=== PATIENT | female | born 1985 | race Caucasian/White ===

== ENCOUNTER → 2018-07-05 12:48 | Outpatient (REF) | payer OTHER, SELFPAY | LOC: LAB 12:48 | PROVIDERS: Visit Provider Family Medicine | DX: R10.9 Unspecified abdominal pain (principal) | CPT/HCPCS: 87086 ==

== ENCOUNTER → 2018-11-06 12:13 | Outpatient (CLI) | payer OTHER, SELFPAY ==
--- NOTE | 2018-11-06 | DI.US.S_ITS ---
PROCEDURE: US RENAL COMPLETE INDICATIONS: Hematuria, unspecified TECHNIQUE: Real-time scanning was performed of the kidneys and bladder, with image documentation. COMPARISON: [facility], CT, IVP (ABD & PEL WWO CONTRAST), 08/28/2017, 15:44. FINDINGS: Kidneys: Kidneys are normal in size. Right kidney measures 9.9 cm long; left kidney measures 9.0 cm long. Right renal cortical thickness is 1.5 cm; left renal cortical thickness is 1.7 cm. Renal cortical echotexture is normal. No hydronephrosis or nephrolithiasis. No suspicious solid mass lesions. Bladder: Pre-void bladder volume is 307 mL. Post-void residual is 12 mL. Pre-void images demonstrate no intraluminal masses or stones. On pre-void images, bilateral ureteral jets are noted with color Doppler interrogation. (Of note, ureteral jets may not be detectable in up to 25% of cases due to insufficient differences in specific gravity between ureteral and bladder urine). Miscellaneous: No free pelvic fluid. IMPRESSION: Normal kidneys. Dictated by: Sorin Macias [facility] Interpreted: Kory Humphries MD on 11/06/2018 at 13:01 Approved by: Kory Humphries M.D. on 11/06/2018 at 14:01
== END ==
PROVIDERS: PCP Family Medicine; Visit Provider Family Medicine
DX: R31.9 Hematuria, unspecified (principal)
CPT/HCPCS: 76770

== ENCOUNTER 2019-10-08 13:45 | Outpatient (RCR) | payer OTHER, SELFPAY ==
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
--- NOTE | 2019-02-13 19:55 | PT-OP ANOTE ---
Pt cancelled appt.
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
--- NOTE | 2019-03-12 13:52 | PT-OP ANOTE ---
Cancelled, could not find childcare.
--- NOTE | 2019-03-20 11:43 | PT-OP ANOTE ---
Pt DNS for appt. Message left on answering machine of next visit and reminded pt of cancellation policy.
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
--- NOTE | 2019-05-08 11:48 | PT-OP ANOTE ---
[id number] Message left reminding pt of her 1p appt and the cancellation policy, advising last 2 appts were DNS. Pt to call if not able to make appt.
--- NOTE | 2019-05-08 16:00 | PT.OPPOC ---
Current Diagnoses Muscle weakness (generalized) (05/08/19) Unspecified urinary incontinence (05/08/19) Visit Care Team Role Provider Type Raulito Bryson MD Attending Provider Physician Primary Care Provider Specialty: Family Practice Address: [address] [place] [address], [facility], [place], [address] Email: [email or web address] Plan Of Care PT-OP-T Assessment and Plan Start: 01/27/19 18:21 Freq: Status: Active Protocol: Document 05/08/19 13:00 AMB (Rec: 05/08/19 14:13 AMB [id number]) Physical Therapy Assessment Goals Three Impairment Pt has urinary dribbling after voiding Short Term Goal (STG) Pt will be able to improve her core stability and minimize her Diastasis Rectus to decrease urinary dribbling after voiding. STG Duration MET Assisted Goal (LTG) Pt will be able to eliminate urinary dribbling after voiding. LTG Duration 07/03/19 Two Impairment PF weakness with urinary leakage on coughing or sneezing Short Term Goal (STG) Pt will be educated in proper valsalva maneuver with toileting and hip hinging with transfers. STG Duration 06/05/19 Assisted Goal (LTG) Increase PF strength with ability to cough or sneeze without urinary leakage. LTG Duration 07/03/19 One Impairment Lacks appropriate HEP Thread Tool Grinder Set Up Operator Goal (LTG) Pt will be independent with a HEP to promote PF stability and strength. LTG Duration 07/03/19 Assessment Summary Assessment Terrie has missed about a month of therapy due to the of her mother. She has progressed in her ability to relax her pelvic floor, but continues to have symptoms of stress incontinence. She is actively trying to lose weight , so we have been educating her on safe exercise given her diastasis recti and pelvic floor impairments. She has shown improvement in that she is leaking less and her overall resting tone of her pelvic floor is lower, but she would benefit from continued PT to help her decrease her stress incontinence and help her return to exercise. Physical Therapy Plan Frequency and Duration Frequency of Treatment 1x/Week Duration of Treatment 8 weeks Plan of Care Start Date 05/08/19 Plan of Care End Date 07/03/19 Therapeutic Interventions Therapeutic Interventions Home Exercise Program,Joint Mobilizations,Manual Therapy, Neuromuscular Re-education, Patient/Caregiver Education, Self-Care/Home Management,Soft Tissue Mobilization,Taping, Therapeutic Activities, Therapeutic Exercises Modalities Biofeedback,Electric Stimulation Next Visit Focus/Plan Next Note Type Treatment Note Next Visit Plan Check DR and PF for tenderness . Focus on decreasing tenderness and tone in PF, and improving core and hip stability. Continue with EMG biofeedback focus on endurance and lowering resting tone. Plan of Care Dates Plan of Care Start Date 05/08/19 Plan of Care End Date 07/03/19
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
--- NOTE | 2019-09-10 16:00 | PT.OPPOC ---
Physical, Occupational & Speech Therapy At [facility] Current Diagnoses Muscle weakness (generalized) (09/10/19) Unspecified urinary incontinence (09/10/19) Visit Care Team Role Provider Type Raulito Bryson MD Attending Provider Physician Primary Care Provider Specialty: Family Practice Address: [address] [place] [address], [id number] Email: [email or web address] Plan Of Care PT-OP-T Assessment and Plan Start: 01/27/19 18:21 Freq: Status: Active Protocol: Document 09/10/19 13:45 AMB (Rec: 09/10/19 16:02 AMB [email or web address]) Physical Therapy Assessment Goals Three Impairment Pt has urinary dribbling after voiding Short Term Goal (STG) Pt will be able to improve her core stability and minimize her Diastasis Rectus to decrease urinary dribbling after voiding. STG Duration MET Endocrinology Nurse Goal (LTG) Pt will be able to eliminate urinary dribbling after voiding. 09/10 Progress made, pt still leaks but has decreased volume of leak. LTG Duration 12/03/19 Two Impairment PF weakness with urinary leakage on coughing or sneezing Short Term Goal (STG) Pt will be educated in proper valsalva maneuver with toileting and hip hinging with transfers. STG Duration MET Custodial Goal (LTG) Increase PF strength with ability to cough or sneeze without urinary leakage. Progress made: pt does not always leak with these triggers but still can. LTG Duration 12/03/19 One Impairment Lacks appropriate HEP Custodial Goal (LTG) Pt will be independent with a HEP to promote PF stability and strength. LTG Duration MET Assessment Summary Assessment Terrie has improved with her static contraction but dynamic movement (running and picking up her son) remains challenging, will need to work on increasing dynamic challenge to pelvic floor. Re -evaluated diastasis and 2 finger widths above umbilicus, but just one below. Physical Therapy Plan Frequency and Duration Frequency of Treatment Every Other Week Duration of Treatment 12 weeks Plan of Care Start Date 09/10/19 Plan of Care End Date 12/03/19 Therapeutic Interventions Therapeutic Interventions Home Exercise Program,Joint Mobilizations,Manual Therapy, Neuromuscular Re-education, Patient/Caregiver Education, Self-Care/Home Management,Soft Tissue Mobilization,Taping, Therapeutic Activities, Therapeutic Exercises Modalities Biofeedback,Electric Stimulation Next Visit Focus/Plan Next Note Type Treatment Note Next Visit Plan Focus on controlled relaxation and contraction of pelvic floor with return to safe exercise. Plan of Care Dates Plan of Care Start Date 09/10/19 Plan of Care End Date 12/03/19 Electronically Signed by: Jory Frye, PT 09/24/19 0752 Please Sign and Return: I have reviewed this Plan of Care and certify that the skilled therapy services above are required to meet the patient?s needs. Physician Signature Date Printed Name and Credentials Clinical Instructor Signature Printed Name and Credentials
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
== END 2020-01-29 08:11 ==
LOC: PHYS 13:45
PROVIDERS: PCP Family Medicine; Visit Provider Family Medicine
DX: R32 Unspecified urinary incontinence (principal); M62.81 Muscle weakness (generalized)
CPT/HCPCS: 97110; 97112; 97140; 97162; 97535

== ENCOUNTER → 2020-08-23 12:56 | Outpatient (CLI) | payer OTHER, SELFPAY ==
--- NOTE | 2020-08-23 | DI.RAD.S_ITS ---
PROCEDURE: XR CERVICAL SPINE 2V OR 3V INDICATIONS: Paresthesia of skin TECHNIQUE: 3 view(s) of the cervical spine were acquired. COMPARISON: None. FINDINGS: Bones: No fracture. Reversal of the normal cervical lordosis. Disc spaces grossly preserved. Multilevel degenerative endplate sclerosis and spurring. Diffuse facet arthropathy. Soft tissues: No prevertebral soft tissue swelling. IMPRESSION: Mild degenerative changes. If the patient's pain or other symptoms persist, consider further evaluation with MRI Dictated by: Gael Crockett M.D. on 08/23/2020 at 14:30 Approved by: Gael Crockett M.D. on 08/23/2020 at 14:31
== END ==
PROVIDERS: PCP Nurse Practitioner Family; Referring Provider Nurse Practitioner Family; Visit Provider Nurse Practitioner Family
DX: R20.2 Paresthesia of skin (principal); M47.812 Spondylosis without myelopathy or radiculopathy, cervical region
CPT/HCPCS: 72040

== ENCOUNTER → 2021-04-04 09:03 | Outpatient (CLI) | payer OTHER, SELFPAY ==
--- NOTE | 2021-04-04 | DI.RAD.S_ITS ---
PROCEDURE: XR HAND RT 2V INDICATIONS: RIGHT HAND SWELLING TECHNIQUE: Two views of the hand(s) acquired. COMPARISON: [facility], , HAND 3V RIGHT, 02/06/2012, 11:15. FINDINGS: Bones: No fractures or dislocations. Carpal bones are normally aligned. No suspicious bony lesions. Soft tissues: No suspicious soft tissue calcifications. IMPRESSION: Intact right hand. Dictated by: Suzy Johnson M.D. on 04/04/2021 at 14:13 Approved by: Suzy Johnson M.D. on 04/04/2021 at 14:14
== END ==
PROVIDERS: PCP Internal Medicine; Referring Provider Internal Medicine; Visit Provider Internal Medicine
DX: M79.89 Other specified soft tissue disorders (principal)
CPT/HCPCS: 73120

== ENCOUNTER → 2021-11-02 12:28 | Outpatient (CLI) | payer OTHER, SELFPAY ==
--- NOTE | 2021-11-02 12:30 | DI.ECHO.S_ITS ---
[facility]---------+ [facility] +---------+ : : [address] : : : : [id number] : : : : Phone: [phone]---------+ Echocardiogram Report + + :Name: JASMIN ROCK Study Date: 11/02/2021 Height: 63 in : :[facility] ReadingLocation: Weight: 194 lb : : Gender: Female BSA: 1.9 m2 : :: 1985 Age: 36 yrs BP: 148/90 mmHg: :Reason For Study: PALPITATIONS, MURMUR : :Ordering Physician: PRISCA, : :GILMA Performed By: Gianna Cota : :Referring: GILMA COPE : + + Interpretation Summary Sinus tachycardia. Heart rate is 88-115 bpm. Normal LV size, wall thickness; wall motion and LV systolic function. EF is 60-65%. Normal chamber sizes. No valvular abnormalities. No prior study available for comparison. Procedure: A two-dimensional transthoracic echocardiogram with color flow and Doppler was performed. The study quality was technically adequate. There is no prior echocardiogram noted for this patient. The patient was in sinus tachycardia with heart rates between 88-115 bpm during the exam. Left Ventricle: The left ventricle is normal in size and wall thickness. The ejection fraction is estimated to be 60-65%. Right Ventricle: The right ventricle is normal in size and function. Atria: The left atrial size is normal. Right atrial size is normal. There is no Doppler evidence for an interatrial shunt. Mitral Valve: The mitral valve is normal in structure and function. There is no mitral regurgitation noted. Aortic Valve: The aortic valve is trileaflet. The aortic valve opens well. There is no aortic valve stenosis. No aortic regurgitation is present. Tricuspid Valve: The tricuspid valve is normal in structure and function. There is trace tricuspid regurgitation. Pulmonic Valve: The pulmonic valve leaflets are thin and pliable; valve motion is normal. There is no pulmonic valvular regurgitation. Great Vessels: The aortic root is normal size. The dimensions of the ascending aorta are normal. The IVC is of normal diameter and collapses greater than 50% with a sniff. This suggests a low right atrial pressure of 3 mm Hg. Pericardium/ Pleura There is no pericardial effusion. There is no pleural effusion. MMode/2D Measurements & Calculations LVIDd: 4.0 cm LVOT diam: 1.8 cm LVIDs: 2.6 cm Ao root diam: 3.0 cm FS: 34.4 % asc Aorta Diam: 3.1 cm IVSd: 0.85 cm Ao Arch Diam (Prox Trans): 2.6 cm LVPWd: 1.0 cm LV iyer. diameter/BSA (cm/m^2): 2.1 LV sys. diameter/BSA (cm/m^2): 1.4 LA A2 area: 19.1 cm2 RA long axis: 4.4 cm LA A4 area: 14.1 cm2 RA area: 10.9 cm2 LA length (vol): 4.6 cm RA vol: 22.8 ml LA vol: 50.2 ml RA : 11.9 ml/m2 LA vol index: 26.3 ml/m2 IVC diam: 1.5 cm RVD1 (basal): 2.7 cm RVD2 (mid): 2.5 cm TAPSE: 2.5 cm Doppler Measurements & Calculations Ao V2 max: 173.2 cm/sec LVOT Max Celio: 118.7 cm/sec Ao V2 mean: 116.0 cm/sec LV V1 max P.6 mmHg Ao max P.0 mmHg LV V1 VTI: 20.9 cm Ao mean P.1 mmHg CHRISTINA(I,D): 1.6 cm2 Ao V2 VTI: 32.7 cm CHRISTINA(V,D): 1.8 cm2 sev ratio: 0.64 CHRISTINA indexed to BSA (cm^2/m^2): 0.85 MV E max celio: 97.4 cm/sec PA V2 max: 141.4 cm/sec MV A max celio: 86.7 cm/sec PA V2 mean: 97.5 cm/sec MV E/A: 1.1 PA mean P.3 mmHg Med Peak E' Celio: 13.4 cm/sec PA pr(Accel): 25.9 mmHg E/E' med: 7.3 Lat Peak E' Celio: 17.6 cm/sec E/E' lat: 5.5 E/e' average: 6.4 MV dec time: 0.21 sec SV(LVOT): 53.4 ml Electronically signed by: Bianka Torres M.D. on Reading Physician:11/03/2021 12:51 AM
== END ==
PROVIDERS: PCP Internal Medicine; Referring Provider Internal Medicine; Visit Provider Internal Medicine
DX: R00.2 Palpitations (principal); R00.1 Bradycardia, unspecified
CPT/HCPCS: 93306

== ENCOUNTER → 2022-12-19 14:16 | Outpatient (CLI) | payer OTHER, SELFPAY ==
--- NOTE | 2022-12-19 | DI.US.S_ITS ---
PROCEDURE: US PELVIC COMPLETE INDICATIONS: RIGHT PELVIC PAIN TECHNIQUE: Real-time scanning was performed of the pelvic organs, with image documentation. Additional endovaginal scanning was necessary due to incomplete visualization of the adnexal and endometrial structures by transabdominal scanning. COMPARISON: None. FINDINGS: Uterus: Uterus is vertically oriented and enlarged at 16.2 x 9.8 x 13.5 cm. The myometrium is heterogeneous as there is a dominant fundal fibroid measuring 10.1 x 9.9 x 11.1 cm. The endometrium is not seen. No significant vascularity. Ovaries: The right ovary measures 2.2 x 1.5 x 1.9 cm, with a calculated ovarian volume of 3.3 cc. The left ovary measures 1.9 x 2.0 x 1.8 cm, with a calculated ovarian volume of 3.6 cc. The ovaries have a normal sonographic appearance. Less than 12 follicles can be seen in each ovary. No adnexal masses are seen. Other: No pathologic free abdominal or pelvic fluid. The appendix was not seen in the right lower quadrant. IMPRESSION: 1. 11.1 cm dominant uterine fibroid enlarging the uterus. 2. Nonvisualization of the endometrium. For further endometrial detail, MR imaging of the pelvis may be useful. 3. Normal ovaries. 4. Nonvisualized appendix. We strive to produce accurate, complete, and clear reports of imaging services. To assist us in improving patient care, this report was composed using standard report templates and voice recognition software. Therefore, it may contain abnormal punctuation, insertions and/or omissions. Occasional wrong-word or sound-alike substitutions may occur. Though we review the report and make efforts to correct it, we do recommend that the report be read carefully in proper context to recognize any text inaccuracies. Dictated by: Suzy Johnson M.D. on 12/19/2022 at 18:38 Approved by: Suzy Johnson M.D. on 12/19/2022 at 18:40
== END ==
PROVIDERS: PCP Internal Medicine; Referring Provider Internal Medicine; Visit Provider Internal Medicine
DX: R10.31 Right lower quadrant pain (principal); D25.9 Leiomyoma of uterus, unspecified
CPT/HCPCS: 76830; 76856

== ENCOUNTER → 2024-04-30 11:00 | Outpatient (CLI) | payer OTHER, SELFPAY ==
[2024-04-30 14:14] LABS: Follicle Stimulating Hormone 1.17 mIU/mL; Luteinizing Hormone 1.33 mIU/mL
== END ==
LOC: LAB 11:03
PROVIDERS: PCP Internal Medicine
DX: L70.8 Other acne (principal)
CPT/HCPCS: 36415; 82627; 83001; 83002; 83498; 84402; 84403

== ENCOUNTER → 2025-01-25 15:05 | Outpatient (CLI) | payer OTHER, SELFPAY ==
--- NOTE | 2025-01-25 15:06 | DI.MG.S_ITS ---
MM screening mammo BI: 01/25/2025. BI-RADS: 1 CLINICAL: 39-year old female for bilateral screening mammogram. Tyrer-Cuzick lifetime risk of 19.2%. Current reported family history of breast cancer: mother. PRIOR EXAMS No prior examinations available. MAMMOGRAPHY TECHNIQUE: 2D and 3D (tomosynthesis) digital mammographic views obtained, with additional images as needed for full coverage. Current study was also evaluated with a Computer Aided Detection (CAD) system. DENSITY B. There are scattered areas of fibroglandular density. MAMMOGRAPHY FINDINGS Bilateral: No suspicious mass, asymmetry, microcalcification, or other abnormality seen. IMPRESSION: * No evidence of malignancy. RECOMMENDATIONS Bilateral * Annual screening mammography. OVERALL ASSESSMENT CATEGORY BI-RADS-1: Negative. The [employer] recommends annual screening mammography beginning at age 40 for women with average risk of breast cancer. ELECTRONICALLY SIGNED: Roxy Llamas M.D. on 01/27/2025 at 06:40:25 AM PT Interpreting Station ID: [id number]
== END ==
PROVIDERS: PCP Registered Nurse; Referring Provider Registered Nurse; Visit Provider Registered Nurse
DX: Z12.31 Encounter for screening mammogram for malignant neoplasm of breast (principal); Z80.3 Family history of malignant neoplasm of breast
CPT/HCPCS: 77063; 77067

== ENCOUNTER 2025-02-26 06:15 | Day surgery (SDC) | payer OTHER, SELFPAY ==
[2025-02-19 12:58] VITALS: BMI 39.6
--- NOTE | 2025-02-26 | PATH_ITS ---
[facility] Accession Number: [id number] No. of containers..01 Tissue . 01 Material submitted: . hemorrhoids - HEMORRHOIDS . 01 Diagnosis: HEMORRHOIDS, HEMORRHOIDECTOMY: Benign hemorrhoid tissue. [facility] 03/03/2025 1617 Local . 01 Electronically signed: . Kalie Aguirre MD, Pathologist NPI- [id number] . 01 Gross description: . HEMORRHOIDS: Received in formalin are 2 fragments of johnson soft tissue measuring 3.0 x 2.0 x 2.0 cm in aggregate. Tissue is inked. Specimen is sectioned and submitted in registration representative sections in 2 cassettes. /FABIOLA 03/02/2025 2313 Local . 01 Pathologist provided ICD-10: K64.9 . 01 CPT . 837311 Specimen Comment: A courtesy copy of this report has been sent to [facility] Performed at: [address] [address], [place], [place] [id number] MD Jean Phan MD Phone: [phone]
[2025-02-26 06:35] VITALS: BMI 40.0
[2025-02-26 06:40] VITALS: BP 125/77; PULSE 84; RESP 17; TEMP 36.5; O2SAT 98
[2025-02-26] MEDS: LACTATED RINGERS 1,000 ML 42 ML IV (06:51)
--- NOTE | 2025-02-26 07:00 | PM.HP.IH.1 ---
History of Present Illness History of Present Illness Date Patient Seen: 02/26/25 Time Patient Seen: 07:00 Chief complaint: Hemorrhoidectomy Narrative: Patient presents this morning for hemorrhoidectomy. FOR[facility]LY [facility] Medical History Acne ADHD Hypertension Hyperthyroidism Irregular menstrual cycle Palpitations Surgical History Anesthesia Kidney stone on left side (~2009) Status post tonsillectomy and adenoidectomy (~1991) Family History Mother Cancer Grandfather History of heart attack Hyperlipidemia Grandmother History of heart attack Grandfather Cancer Grandmother Lung cancer Social History (System 08/14/18 @ 14:36 by Megan Berger) household members: spouse and children Smoking Status: Current some day smoker alcohol intake: current Meds Home Medications and Allergies Home Medications ?Medication ?Instructions ?Recorded ?Confirmed ?Type hydrochlorothiazide 25 mg tablet 25 mg PO QDAY ##0 01/14/11 02/26/25 History atorvastatin 10 mg tablet 10 mg PO DAILY 09/28/18 02/26/25 History amlodipine 10 mg tablet 10 mg PO DAILY 01/25/25 02/26/25 History ergocalciferol (vitamin D2) 1,250 1,250 mcg PO 01/25/25 01/25/25 History mcg (50,000 unit) capsule hydrocortisone 2.5 % topical cream applic topical 01/25/25 01/25/25 History with perineal applicator propranolol 20 mg tablet 20 mg PO BID 01/25/25 02/26/25 History Allergies Allergy/AdvReac Type Severity Reaction Status Date / Time shellfish derived Allergy Severe SWELLING Verified 02/26/25 06:34 OF LIPS AND TONGUE oxycodone Allergy Intermediate Rash, itchy Verified 02/26/25 06:34 Exam Vital Signs (past 8 hours): - 02/26/25 06:40 Temperature 97.7 F Pulse Rate 84 Respiratory Rate 17 Blood Pressure 125/77 Pulse Oximetry 98 Oxygen Delivery Method Room Air Oxygen Delivery Method Room Air Const General: healthy appearing and comfortable Orientation: alert and oriented x3 Resp Effort & Inspection: normal respiratory effort and able to speak in complete sentences Auscultation: clear to auscultation bilaterally Cardio Rate: regular rate Rhythm: regular rhythm GI Palpation: soft (nontender) Extrem Other: without pitting edema Assessment & Plan Assessment and plan (1) Hemorrhoids: Qualifiers: Hemorrhoid type: third degree Qualified Code(s): K64.2 - Third degree hemorrhoids Status: Acute Plan Plan hemorrhoidectomy. The risks, benefits and options regarding the procedure were explained to the patient in detail. Risk discussion included but not limited to: pain, bleeding, infection, recurrence. The patient was encouraged to ask questions and they were answered to their satisfaction. The patient understands and is agreeable to proceed. Time-Based Coding :: [TOTAL MINUTES] spent with patient and on the chart (including review of chart, obtaining history, exam, reviewing outside data, placing orders, documenting exam and treatment plan, and counseling patient) on [DATE]. [employer] Extension Specialist Document charge(s): Yes Charge Codes Inpatient/observation care including admit and discharge same day: [id number]
--- NOTE | 2025-02-26 08:11 | SUR.OPER ---
Prone jackknife on padded OR bed, head in foam head support, gel chest rolls vertically placed along shoulders to hip, toes free of pressure, arms secured on padded arm boards at <90 degrees abduction. Safety belt at shoulders. buttocks taped
[2025-02-26] MEDS: BUPIVACAINE 0.5% W/ EPI (PF) 30 ML VIAL INJ (08:30)
[2025-02-26] MEDS: BACITRACIN OINT 0.9 GM PCKT 1 APPLIC TOP (08:31)
--- NOTE | 2025-02-26 08:48 | PM.OP.1 ---
Operative Date/Time/Diagnoses Date of procedure: 02/26/25 Time of procedure: 08:49 Pre-op diagnosis: Hemorrhoids Post-op diagnosis: same Procedure & Clinicians Procedure: Hemorrhoidectomy x 2; suture ligation of internal hemorrhoids x 2 Same procedure(s) as scheduled: Yes Indications: 39yo F failed medical management of hemorrhoids, prolapsed, unreducible, int/exts Surgeon: Donn Pathak Home Assessment Nurse: Donovan Zendejas Anesthesia Type: General Operative Notes Findings: Large external/internal columns at 3 o'clock, 7 o'clock; the 11 o'clock column was internal Closure Type: primary Specimen(s): other (hemorrhoidal tissue excised) Applied: none Estimated Blood Loss (mL): 30 Blood products transfused: none Procedure in detail: After informed consent and satisfactory general endotracheal anesthesia the patient was placed in the prone simone-knife position and pressure points well padded. Surgical time-out was performed with all team members in agreement. The perirectal area was prepped and draped in the usual sterile manner using Betadine solution. Appropriate DVT prophylaxis was utilized. 30 cc of 0.5% Marcaine with epinephrine was injected around the perianal area to relax the sphincter and for preemptive analgesia. Exam under anesthesia demonstrated the largest hemorrhoidal column at the 3 o'clock position, another large column at the 7 o'clock position, the 11:00 o'clock. column consisted of internal hemorrhoids. The 3:00 o'clock column was addressed 1st. The column was grasped with a Cielo clamp and a v-shaped skin incision was made with cautery and extended proximally elevating the hemorrhoidal tissue off of the sphincter mechanism. A 2-0 chromic suture ligature was placed at the base of the vein and tied. We then ran the suture distally closing the defect in a running locking manner. The hemorrhoid column at 7:00 o'clock was treated in the same manner. The 11:00 o'clock column consistent of internal hemorrhoids x 2. These were clamped with a Cielo and then suture ligated with a 2-0 silk suture similar to the method of internal hemorrhoid banding. I feared that a formal excision here would be at risk for stenosis. With this, all significant hemorrhoidal tissue was addressed. Hemostasis was excellent. Bacitracin ointment was applied to the area. A dry sterile dressing was applied. The instrument sponge and needle counts were all correct x2. The estimated blood loss was minimal. The patient tolerated the procedure well. She was extubated in the operating room after reversal of general anesthetic and transported to the recovery area in stable condition. Complications: none Post-operative Condition: stable Disposition: PACU Plan for aftercare: PACU then home
[2025-02-26 08:52] VITALS: BP 131/64; PULSE 96; RESP 16; TEMP 36.2; O2SAT 95
[2025-02-26 08:56] VITALS: BP 144/58; PULSE 93; RESP 16; O2SAT 95
[2025-02-26 09:01] VITALS: BP 138/62; PULSE 87; RESP 16; O2SAT 93
[2025-02-26] MEDS: HYDROMORPHONE 1 MG INJ IV (09:02)
[2025-02-26 09:06] VITALS: BP 147/70; PULSE 89; RESP 16; O2SAT 94
[2025-02-26 09:11] VITALS: BP 140/61; PULSE 83; RESP 16; TEMP 36.7; O2SAT 93
== END 2025-02-26 09:43 | disposition home or self-care (01) ==
PROVIDERS: PCP Registered Nurse; Referring Provider Surgery; Visit Provider Surgery
PROC: (CPT 46260; principal; 2025-02-26 07:45)
DX: K64.2 Third degree hemorrhoids (principal); F17.210 Nicotine dependence, cigarettes, uncomplicated
CPT/HCPCS: 46260; 81025; J1100; J1171; J2405; J2704; J3010; J3490

== ENCOUNTER → 2025-04-08 08:51 | Outpatient (CLI) | payer OTHER, SELFPAY ==
--- NOTE | 2025-04-08 08:52 | DI.NM.S_ITS ---
PROCEDURE: NM UPTAKE AND SCAN RADIOPHARMACEUTICAL: 375 ???Ci I-123 sodium iodide by mouth. INDICATIONS: Subclinical hyperthyroidism TECHNIQUE: I-123 sodium iodide was administered orally. Anterior neck images were obtained, and iodine uptake by the thyroid gland calculated using arc welder apprentice's software. COMPARISON: None. FINDINGS: Morphology: There is asymmetric uptake in the right gland compared to the left. Uptake: 6 hour thyroid uptake is 16% ; normal ranges are from 6-18%. 24 hour thyroid uptake is 35% ; normal ranges are from 10-30%. IMPRESSION: Mildly increased 24 hour uptake. Mildly asymmetric uptake in the right gland compared to the left. A thyroid ultrasound is recommended to assess for any focal right thyroid nodules. (If positive, this could represent a more toxic adenoma or multinodular goiter) Dictated by: Jason Foy M.D. on 04/09/2025 at 10:44 Approved by: Jason Foy M.D. on 04/09/2025 at 10:46
== END ==
PROVIDERS: Family Provider Registered Nurse; PCP Registered Nurse; Referring Provider Registered Nurse; Visit Provider Registered Nurse
DX: E05.90 Thyrotoxicosis, unspecified without thyrotoxic crisis or storm (principal)
CPT/HCPCS: 78014; A9516

== ENCOUNTER → 2025-04-15 12:56 | Outpatient (ROUT) | payer OTHER, SELFPAY ==
[2025-04-15 13:39] LABS: Influenza A - CEPHEID Flu A NEGATIVE (NEGATIVE); Influenza B - CEPHEID Flu B NEGATIVE (NEGATIVE)
[2025-04-15 13:40] LABS: COVID-19 CEPHEID 4-PLEX PCR Negative (Negative)
== END ==
LOC: LAB 12:56
PROVIDERS: Family Provider Registered Nurse; PCP Registered Nurse; Visit Provider Registered Nurse
DX: R05.1 Acute cough (principal)
CPT/HCPCS: 87637

== ENCOUNTER → 2025-04-22 12:55 | Outpatient (CLI) | payer OTHER, SELFPAY ==
--- NOTE | 2025-04-22 12:56 | DI.US.S_ITS ---
PROCEDURE: US THYROID INDICATIONS: hyperthyroidism TECHNIQUE: Real-time scanning was performed of the thyroid gland, with image documentation. COMPARISON: None. FINDINGS: Thyroid: Right lobe measures 5.9 x 2.9 x 2.0 cm. Left lobe measures 4.6 x 1.3 x 1.5 cm. Isthmus is 0.35 cm thick. Echotexture is heterogeneous. Nodule number: 1 Location: Right mid Size: 2.0 x 2.1 x 1.6 cm. Composition: Mixed Echogenicity: Hypoechoic Shape: wider than tall. Margins: Smooth Echogenic foci: Punctate Total points: 6 ACR TI-RADS category: 4 Nodule number: 2 Location: Right superior Size: 1.0 x 0.5 x 0.8 cm. Composition: Solid Echogenicity: Hypoechoic Shape: wider than tall. Margins: Smooth Echogenic foci: None Total points: 4 ACR TI-RADS category: 4 IMPRESSION: Per ACR TI-RADS scoring recommend FNA right mid thyroid nodule (nodule 1). Follow-up recommended as described below for nodule 2 in the right upper thyroid lobe. ACR TI-RADS definitions and recommendations: TI-RADS 1 (benign): 0 points. FNA not needed. TI-RADS 2 (not suspicious): 2 points. FNA not needed. TI-RADS 3: 3 points. * FNA if 2.5 cm or larger, follow up if 1.5 cm or larger (at 1, 3, and 5 years). TI-RADS 4: 4-6 points. * FNA if 1.5 cm or larger, follow up if 1 cm or larger (at 1, 2, 3, and 5 years). TI-RADS 5: 7 points or more. * FNA if 1 cm or larger, follow up if 0.5 cm or larger (every year for 5 years). Dictated by: Mimi RINALDI Interpreted: Fransisco Arce MD on 04/22/2025 at 14:16 Transcribed by: MARIBEL on 04/22/2025 at 14:22 Approved by: Fransisco Arce M.D. on 04/23/2025 at 9:24
== END ==
LOC: US 12:56
PROVIDERS: Family Provider Registered Nurse; PCP Registered Nurse; Referring Provider Registered Nurse; Visit Provider Registered Nurse
DX: E05.90 Thyrotoxicosis, unspecified without thyrotoxic crisis or storm (principal); E04.2 Nontoxic multinodular goiter; R94.6 Abnormal results of thyroid function studies
CPT/HCPCS: 76536

== ENCOUNTER → 2025-06-02 13:49 | Outpatient (CLI) | payer OTHER, SELFPAY ==
--- NOTE | 2025-06-02 13:50 | DI.US.S_ITS ---
PROCEDURE: US FINE NEEDLE ASPIRATION INDICATIONS: Thyroid nodule TECHNIQUE: The indications, alternatives, benefits, risks, and complications of the procedure were explained to the patient. Written informed consent was obtained and placed in the chart. The thyroid region was examined sonographically and a site was chosen for ultrasound guided percutaneous sampling. The skin was prepared and draped in the usual fashion, and anesthetized with 1% lidocaine infiltrated from the skin down to the thyroid gland. Multiple passes were then performed, with contents emptied into an appropriate pathology specimen container. A bandage was applied to the area of access at completion of the study. COMPARISON: None. FINDINGS: Location(s) of lesion(s) sampled: Right thyroid nodule. [place]: 25 gauge hypodermic needles. Number of passes: 6 Medications: 1% lidocaine for local anaesthesia. Complications: None. IMPRESSION: Successful ultrasound-guided thyroid nodule fine needle aspiration, with cytology results pending. Please see chart below for management recommendations based on cytology results. [facility] ReportingRecommendationsNon-diagnostic* Repeat US-guided FNA, with on-site cytology evaluation if possible. * Repeated non-diagnostic nodules without high suspicion US features: close observation vs surgical consult. * Consider surgery if nodule has high suspicion US features, grows >20% in 2 dimensions on followup, or patient has clinical risk factors for malignancy. Benign* If nodule has high suspicion US features: repeat US and FNA within 12 months. * If nodule has low to intermediate suspicion US features: repeat US at 12-24 months. If nodule grows (20% increase in at least 2 dimensions, with minimal increase of 2 mm or >50% change in volume), or development of new suspicious US features, then repeat FNA or continue followup. * If nodule has very low suspicion US features: followup US at >24 months. Atypia of undetermined significance, follicular lesion of undetermined significanceRepeat FNA, molecular testing, followup US, or surgical consult.Follicular neoplasm, suspicious for follicular neoplasmSurgical consult; also consider molecular testing. Suspicious for malignancySurgical consult.MalignantSurgical consult. Dictated by: Sorin RINALDI Interpreted: Fransisco Arce MD on 06/02/2025 at 17:00 Transcribed by: LA NENA on 06/02/2025 at 17:01 Approved by: Fransisco Arce M.D. on 06/02/2025 at 17:04
--- NOTE | 2025-06-02 15:06 | PATH_ITS ---
Note [facility] Accession Number: [id number] TESTS RESULT FLAG UNITS REF RANGE LAB Clinician Provided Cytology Information No. of containers..01 Other (Miscellaneous) No. of containers..02 Previously Prepared Cytology Slide Source: RIGHT THYROID MASS DIAGNOSIS: RIGHT THYROID MASS ATYPIA OF UNDETERMINED SIGNIFICANCE. [place] CATEGORY III. ATYPIA OF UNDETERMINED SIGNIFIANCE - NUCLEAR ATYPIA. MOLECULAR STUDIES PENDING; RESULTS WILL BE REPORTED SEPARATELY. Pathologist ICD10: R89.6 Signed out by: Shirin Iglesias MD, Pathologist NPI- [id number] Performed by: Nichelle Orellana, Sound Art Instructor ([facility]) Gross description: 30 CC, PINK, HAZY RECEIVED IN [place] WHITE CAP CONTAINER. RECEIVED 6 ALCOHOL FIXED SLIDES IN 2 GREEN CAP COFFINS. RECEIVED 6 FIXED STAINED SLIDES IN 2 COFFINS. RECEIVED 1 RNA VIAL. : 08-06-26 KASSY /ZENAIDA 06/03/2025 1202 Local FLAG LEGEND: L-Low Normal,H-High Normal,LL-Alert Low,HH-Alert High <-Panic Low,>-Panic High,A-Abnormal,AA-Critical Abnormal Performed at: 01 [address] [facility], [place] [address] Jean Phan MD, Performed at: [address], [place], [place] [id number] MD Jean Phan MD Phone: [phone]
== END ==
LOC: US 13:49
PROVIDERS: Family Provider Registered Nurse; PCP Registered Nurse; Referring Provider Radiology Diagnostic Radiology; Visit Provider Radiology Diagnostic Radiology
DX: E04.1 Nontoxic single thyroid nodule (principal); E05.90 Thyrotoxicosis, unspecified without thyrotoxic crisis or storm
CPT/HCPCS: 10005